=== PATIENT | female | born 1965 | race American Indian/Alaskan Native ===

== ENCOUNTER 2018-10-28 10:10 | Outpatient (CLI) | payer OTHER ==
--- NOTE | 2018-10-28 13:57 | Ultrasound Report ---
LEFT DIGITAL DIAGNOSTIC MAMMOGRAM and LEFT BREAST ULTRASOUND: 10/28/18 10:10:00 CLINICAL: Recalled for asymmetry. COMPARISON:10/14/18 screening FINDINGS: Lateralmedial and spot compression MLO and CC views were performed. Partial effacement of asymmetry on spot images and a partially circumscribed density persists on the lateral view. Ultrasound of the inner left breast was performed and demonstrated normal structures with no mass or cyst to correlate with the mammographic density. IMPRESSION: A probably benign mammographic asymmetry with a negative ultrasound. BI-RADS CATEGORY: 3 - - Probably Benign RECOMMENDATION: 6 month followup left mammogram and left breast ultrasound if needed. COMMENT: 1. Dense breast tissue, i.e., adenosis, fibrocystic changes, etc., may obscure an underlying neoplasm. 2. Approximately 10% of cancers are not detected with mammography. 3. A negative mammography report should not delay biopsy if a clinically suspicious mass is present. COMMENT: Patient follow-up letters are generated via our [employer] application.
== END 2018-10-28 10:11 | disposition home or self-care (01) ==
LOC: MAMMO 10:10
PROVIDERS: ATTEND Internal Medicine
DX: R92.8 Other abnormal and inconclusive findings on diagnostic imaging of breast (principal)

== ENCOUNTER 2019-04-28 13:36 | Outpatient (CLI) | payer OTHER ==
--- NOTE | 2019-04-28 16:08 | Mammography Report ---
DIGITAL LEFT DIAGNOSTIC MAMMOGRAM WITH CAD, 04/28/2019 INDICATION: ABN MAMMO TECHNIQUE: Digital left mammographic imaging was performed. This examination was interpreted with the benefit of Computer-aided Detection analysis. COMPARISON: 10/28/2018 and 10/04/2018 Breast Density: There are scattered areas of fibroglandular density. FINDINGS: A left inner asymmetry and a posterior asymmetry adjacent to the pectoral muscle at the lev el of the nipple line are unchanged. No mass, architectural distortion or suspicious calcifications. IMPRESSION: No mammographic evidence of malignancy. Follow up recommendation: Routine BI-RADS Category 2: Benign. A "normal" or negative report should not discourage follow up or biopsy of a clinically significant f inding. A written summary of these findings will be mailed to the patient. The patient will be entered into a mammography reporting system which will generate a reminder letter for the patient's next appointmen t at the appropriate interval. According to the [employer], yearly mammograms are recommended starting at age 40 and continuing as long as a woman is in good health. Breast MRI is recommended for women with an clotilde roximately 20-25% or greater lifetime risk of breast cancer, including women with a strong family his tory of breast or ovarian cancer and women who have been treated for Hodgkin's disease. Signer Name: Chi Carrizales MD Signed: 04/28/2019 4:03 PM Workstation Name: [id number]
== END 2019-04-28 13:37 | disposition home or self-care (01) ==
LOC: MAMMO 13:36
PROVIDERS: ATTEND Family Medicine
DX: R92.8 Other abnormal and inconclusive findings on diagnostic imaging of breast (principal)

== ENCOUNTER 2020-07-09 09:52 | Outpatient (CLI) | payer OTHER ==
--- NOTE | 2020-07-09 11:02 | Mammography Report ---
DIGITAL SCREENING MAMMOGRAM WITH CAD, 07/09/2020 CLINICAL INFORMATION / INDICATION: Routine screening mammography. TECHNIQUE: Digital bilateral 2D mammography was obtained in the craniocaudal and mediolateral obliqu e projections. This examination was interpreted with the benefit of Computer-Aided Detection analysis . COMPARISON: 04/28/2019, 10/28/2018, 10/04/2018 FINDINGS: Breast Density: There are scattered areas of fibroglandular density. No new dominant mass, suspicious calcifications, or architectural distortion in either breast. Previ ously described left breast asymmetries are unchanged. IMPRESSION: No mammographic evidence of malignancy. Follow up recommendation: Routine yearly BI-RADS Category 2: Benign. A "normal" or negative report should not discourage follow up or biopsy of a clinically significant f inding. A written summary of these findings will be mailed to the patient. The patient will be entered into a mammography reporting system which will generate a reminder letter for the patient's next appointmen t at the appropriate interval. The [employer] recommends yearly mammograms starting at age 40 and continuing as l alfonso as a woman is in good health. Breast MRI is recommended for women with an approximate 20-25% or greater lifetime risk of breast cancer, including women with a strong family history of breast or ova robby cancer or who have been treated for Hodgkin's disease. Signer Name: Jone Joseph MD Signed: 07/09/2020 10:58 AM Workstation Name: [id number]
== END 2020-07-09 09:53 | disposition home or self-care (01) ==
LOC: MAMMO 09:52
PROVIDERS: ATTEND Family Medicine
DX: Z12.31 Encounter for screening mammogram for malignant neoplasm of breast (principal)
CPT/HCPCS: 77067